=== PATIENT | female | born 1950 | race Caucasian/White ===

== ENCOUNTER 2019-08-20 10:28 | Emergency (ER) | payer BC, OTHER ==
[~2019-08-20] VITALS: Ht 165.1 cm; Wt 98.9 kg
[2019-08-20 10:43] VITALS: BP_SYST 146
[2019-08-20 11:53] LABS: BILIRUBIN,URINE NEGATIVE (NEGATIVE); BLOOD, URINE 2+ (NEGATIVE); CLARITY/URINE CLOUDY (CLEAR); COLOR,URINE YELLOW (YELLOW); GLUCOSE,URINE NEGATIVE (NEGATIVE); KETONES,URINE NEGATIVE (NEGATIVE); LEUKOCYTE ESTERASE ,URINE 3+ (NEGATIVE); NITRITE, URINE NEGATIVE (NEGATIVE); PROTEIN URINE 1+ (NEGATIVE); UROBILINOGEN,URINE 0.2 (0.2-1.0)
[2019-08-20 11:57] LABS: BACTERIA,URINE MODERATE /HPF (None Seen); WBC,URINE >100 /HPF (0-3)
[2019-08-20 12:45] VITALS: BP_SYST 146
[2019-08-20] MEDS ORDERED: CEPHALEXIN 500 MG CAPSULE PO ONE (12:45)
[2019-08-20] MEDS ORDERED: PHENAZOPYRIDINE HCL 100 MG TABLET PO ONE (12:45)
== END 2019-08-20 12:45 | disposition home or self-care (01) ==
LOC: SED 10:28
DX: N39.0 Urinary tract infection, site not specified (principal); J45.909 Unspecified asthma, uncomplicated; E11.9 Type 2 diabetes mellitus without complications
CPT/HCPCS: 81000-TC; 87086; 99283

== ENCOUNTER 2019-11-12 22:21 | Emergency (ER) | payer OTHER ==
[~2019-11-12] VITALS: Ht 165.1 cm; Wt 98.0 kg
[2019-11-12 23:03] VITALS: BP_SYST 157
[2019-11-13] MEDS ORDERED: EPINEPHRINE TP ONE (00:15)
[2019-11-13] MEDS ORDERED: TRANEXAMIC ACID 1,000 MG/10 ML VIAL IV ONE (00:15)
[2019-11-13] MEDS ORDERED: EPINEPHrine 1 MG/ML AMP SUBCUT ONE (00:30)
[2019-11-13 01:00] VITALS: BP_SYST 149
== END 2019-11-13 01:00 | disposition home or self-care (01) ==
LOC: SED 22:21
DX: K06.8 Other specified disorders of gingiva and edentulous alveolar ridge (principal); J45.909 Unspecified asthma, uncomplicated; I48.91 Unspecified atrial fibrillation; I10 Essential (primary) hypertension; E03.9 Hypothyroidism, unspecified; E11.40 Type 2 diabetes mellitus with diabetic neuropathy, unspecified
CPT/HCPCS: 99283; J0171; J3490